=== PATIENT | male | born 1950 | race Caucasian/White ===

== ENCOUNTER 2019-02-24 09:07 | Day surgery (SDC) | payer BC ==
[2019-02-24] MEDS ORDERED: PROPOFOL 10 MG/ML VIAL IV ONE (09:08)
[2019-02-24] MEDS ORDERED: LIDOCAINE 2% MDV (20MG/ML) 20ML VIAL IV ONE (09:08)
--- NOTE | 2019-02-28 06:02 | Operative Note ---
DATE OF SERVICE: 02/24/2019. DATE OF SURGERY: 02/24/2019 REQUESTING PROVIDER: Denys Schaeffer DO. SURGEON: Kamini Murphy MD. POSTOPERATIVE DIAGNOSES: 1. Fair bowel preparation. 2. Grade 2 internal hemorrhoids. OPERATION: COLONOSCOPY. INDICATION FOR PROCEDURE: This is a 68-year-old male with history of average risk for colorectal cancer, who presented for screening colonoscopy. SEDATION: Sedation is per Anesthesia. Pulse oximetry was monitored throughout the duration of the procedure to maintain O2 saturation of 90% or greater. Supplemental oxygen was administered via nasal cannula. Cardiac and vital signs were monitored throughout the duration of the procedure and they were stable. PROCEDURE: The procedure of colonoscopy, risks and alternatives to the procedure, including the risks of bleeding and perforation, among others, were explained to the patient. He voiced understanding and agrees to have the procedure done. Physical examination was performed and the patient was found stable for sedation. The patient was then placed in the left lateral position and sedation was initiated. Digital rectal exam was performed and showed small external hemorrhoids with no palpable rectal masses. A lubricated Olympus PCF1 80AL colonoscope was then inserted into the rectum and under direct visualization was advanced to the cecum without difficulty. The ileocecal valve and appendiceal orifice were identified and photographed. The colonic mucosa was carefully examined upon introduction of the colonoscope. There were no gross lesions noted. The bowel preparation was slightly suboptimal, but fair to rule out any significant lesions. The colonoscope was then withdrawn while carefully examining the colonic mucosal surfaces. No other lesions were noted. In the rectum, retroflexion maneuver was performed and Grade 2 internal hemorrhoids were noted. The colonoscope was then withdrawn and the procedures were terminated. The patient tolerated the procedures well without immediate complications. He remained in stable vital signs and was transferred to the recovery room. PLAN AND RECOMMENDATIONS: 1. Patient is to be on a high fiber diet. 2. He is to have a repeat colonoscopy for screening purposes in 5 years because of the suboptimal bowel preparation. Thank you for allowing me to participate in the care of your patient. MARY
== END 2019-02-24 11:02 | disposition home or self-care (01) ==
LOC: HOP 09:07
PROVIDERS: ATTEND Internal Medicine Gastroenterology
DX: Z12.11 Encounter for screening for malignant neoplasm of colon (principal); K64.1 Second degree hemorrhoids; Z91.19 Patient's noncompliance with other medical treatment and regimen; I10 Essential (primary) hypertension; E78.00 Pure hypercholesterolemia, unspecified; E11.9 Type 2 diabetes mellitus without complications; I25.2 Old myocardial infarction